=== PATIENT | male | born 1975 | race Caucasian/White ===

== ENCOUNTER 2016-08-25 06:55 | Emergency (ER) | payer BC, OTHER ==
[~2016-08-25] VITALS: Ht 177.8 cm; Wt 104.3 kg
[2016-08-25 07:05] VITALS: BP 134/83
[2016-08-25] MEDS ORDERED: CYCL10TA PO (07:13)
[2016-08-25] MEDS ORDERED: KETOROLAC 60 MG/2 ML VIAL (J1885) IM ONE (07:30)
[2016-08-25] MEDS ORDERED: NAPR500T PO (08:19)
[2016-08-25] MEDS ORDERED: VALI5TAB PO (08:19)
== END 2016-08-25 08:27 | disposition home or self-care (01) ==
LOC: M ED 07:34
DX: M62.830 Muscle spasm of back (principal); Z88.0 Allergy status to penicillin; Z88.5 Allergy status to narcotic agent; Z87.891 Personal history of nicotine dependence
CPT/HCPCS: 96372; 99281; J1885; J3360

== ENCOUNTER 2017-01-20 17:57 | Emergency (ER) | payer BC ==
[~2017-01-20] VITALS: Ht 180.3 cm; Wt 104.5 kg
[~2017-01-20 17:57] MED LIST: CYCL10TA PO; NAPR500T PO; VALI5TAB PO
[2017-01-20 18:06] VITALS: BP 132/84
[2017-01-20] MEDS ORDERED: ZYRT10CA PO (18:08)
[2017-01-20] MEDS ORDERED: NS 1,000 ML IV ONE (19:00)
[2017-01-20] MEDS: MORPHINE 4 MG/ML 1ML SYRINGE IV PRN ×2 (19:01→20:00)
[2017-01-20] MEDS ORDERED: ISOVUE-370 76% 100ML VIAL (Q9967) As Ordered ONE (19:17)
[2017-01-20 19:32] LABS: BASO % 0.9 % (0.0-1.0); EOS # 0.1 K/mm3 (0.0-0.50); EOS % 2.1 % (0.0-3.0); LARGE UNSTAINED CELL # 0.1 K/mm3 (0.0-0.4); LARGE UNSTAINED CELL % 1.4 % (0.0-4.0); LYMPH # 1.5 K/mm3 (1.5-4.5); LYMPH % 25.6 % (24.0-44.0); MEAN CORPUSCULAR HEMOGLOBIN 31.1 pg (27.0-33.0); MEAN CORPUSCULAR HGB CONC 34.2 g/dl (32.0-36.5); MONO # 0.4 K/mm3 (0.0-0.8); MONO % 6.3 % (0.0-5.0); NEUTROPHILS # 3.6 K/mm3 (1.8-7.7); NEUTROPHILS % 63.7 % (36.0-66.0); PLATELET COUNT, AUTOMATED 210 k/mm3 (150-450); RED CELL DISTRIBUTION WIDTH 12.3 % (11.5-14.5); WHITE BLOOD COUNT 5.7 K/mm3 (4.0-10.0)
[2017-01-20 19:34] LABS: INR 0.96
[2017-01-20 19:38] LABS: ALBUMIN 4.4 GM/DL (3.2-5.2); ALBUMIN/GLOBULIN RATIO 1.38 (1.00-1.93); ALKALINE PHOSPHATASE 41 U/L (45-117); ALT/SGPT 49 U/L (12-78); ANION GAP 8 MEQ/L (8-16); AST/SGOT 25 U/L (15-37); BILIRUBIN,DIRECT 0.1 MG/DL (0.0-0.2); BILIRUBIN,TOTAL 0.5 MG/DL (0.2-1.0); BLOOD UREA NITROGEN 13 MG/DL (7-18); CALCIUM LEVEL 8.9 MG/DL (8.5-10.1); CARBON DIOXIDE LEVEL 27 MEQ/L (21-32); CHLORIDE LEVEL 106 MEQ/L (98-107); CREATININE FOR GFR 1.22 MG/DL (0.70-1.30); GLOMERULAR FILTRATION RATE > 60.0 (>60); GLUCOSE, FASTING 85 MG/DL (70-105); POTASSIUM SERUM 3.6 MEQ/L (3.5-5.1); SODIUM LEVEL 141 MEQ/L (136-145); TOTAL PROTEIN 7.6 GM/DL (6.4-8.2)
--- NOTE | 2017-01-20 20:30 | REPUSA ---
CT of the head Clinical history: trauma. Technique: Multiple axial CT images were obtained through the head without administration of contrast . Findings: The ventricles and sulci are symmetric bilaterally. There is no evidence of acute hemorrhag e or infarct. There is no midline shift, mass effect, or extra-axial fluid collection. The osseous st ructures are unremarkable. The visualized paranasal sinuses and mastoid air cells are clear. Impression: Negative study.
--- NOTE | 2017-01-20 20:30 | REPUSA ---
CT of the facial bones without contrast Clinical history: Pain, trauma. Technique: Multiple axial CT images were obtained through the facial bones and paranasal sinuses util izing 3 mm axial slices without administration of contrast. Coronal and sagittal reconstructions were also obtained. Findings: The visualized paranasal sinuses are clear. The osteomeatal complexes are patent bilaterall y. The nasal septum is midline. The visualized mastoid air cells are clear. The osseous structures do not demonstrate any acute abnormalities. The superficial soft tissues are within normal limits. Impression: Unremarkable CT examination of the facial bones and paranasal sinuses.
--- NOTE | 2017-01-20 20:30 | REPUSA ---
CT of the cervical spine Clinical history: Pain. Trauma. Technique: Multiple axial CT images were obtained through the cervical spine without administration o f contrast. Coronal and sagittal 3-D reconstructed images were also obtained. Comparison: None. Findings: The cervical vertebral bodies are in satisfactory positioning and alignment. No fractures or dislocat ions are demonstrated. The odontoid process is intact. Intervertebral disc spaces are well-maintained . There is no evidence of facet subluxation. The surrounding soft tissues are within normal limits. At C4/C5, there is a small disc osteophyte complex. There is a small central disc protrusion measurin g 0.5 x 0.9 cm. This causes moderate central canal stenosis measuring 7.5 mm in AP diameter. The neur al foramen are patent bilaterally. At C5/C6, there is a disc osteophyte complex and disc bulge, with right paracentral disc protrusion. This causes mild central canal stenosis measuring 9 mm in AP diameter. There is moderate narrowing of the right neural foramen at this level. At C6/C7, there is a broad disc osteophyte complex and disc bulge, causing mild central canal stenosi s measuring 10 mm in AP diameter. The neural foramen are patent bilaterally. Impression: 1. No acute fracture or traumatic injury. 2. At C4/C5, small central disc protrusion causing moderate central canal stenosis. 3. At C5/C6, disc osteophyte complex and disc bulge with right paracentral disc protrusion causing mi ld central canal stenosis and moderate right neural foraminal narrowing. 4. At C6/C7, disc osteophyte complex and disc bulge causing mild central canal stenosis. 5. MRI may be helpful for further evaluation of the central canal stenosis.
--- NOTE | 2017-01-20 20:40 | REPUSA ---
CT of the right hip without contrast Clinical statement: Pain. Trauma. Technique: Multiple axial CT images were obtained with 5 mm cuts through the right hip without admini stration of contrast. Coronal and sagittal reconstructions were also obtained. No comparison is available. Findings: The osseous structures do not demonstrate any fractures or dislocations. There is a benign sclerotic chondroid lesion in the trochanteric region of the proximal right femur. The superficial so ft tissues are unremarkable. The joint spaces are well-maintained. Impression: Unremarkable CT examination of the right hip.
--- NOTE | 2017-01-20 20:40 | REPUSA ---
CT of the abdomen and pelvis with contrast Clinical statement: Pain. Trauma. Technique: Multiple axial CT images were obtained from the base of the lungs through the floor of the pelvis utilizing 5 mm axial slices after administration of nonionic intravenous contrast. Coronal an d sagittal reconstructions were also obtained. No comparison is available. Findings: Chest: The visualized lung bases are clear. Abdomen: The liver, spleen, pancreas, kidneys, gallbladder, and adrenal glands are unremarkable. The aorta is within normal limits. There is no evidence of abdominal lymphadenopathy or ascites. Pelvis: The bowel is unremarkable, with no obstructive or inflammatory changes. The urinary bladder i s within normal limits. The other pelvic structures appear grossly intact. There is no evidence of pe lvic lymphadenopathy or ascites. Bones: There are no suspicious osseous abnormalities seen. Impression: Unremarkable CT examination of the abdomen and pelvis.
--- NOTE | 2017-01-20 20:40 | REPUSA ---
CT of the lumbar spine without contrast Clinical history: Pain. Trauma. Technique: Multiple axial CT images were obtained through the lumbar spine without administration of contrast. Coronal and sagittal 3-D reconstructed images were also obtained. Findings: The lumbar vertebral bodies are in satisfactory positioning and alignment. No fractures or dislocatio ns are demonstrated. Intervertebral disc spaces are well-maintained. There is no evidence of facet nelson bluxation. The neural foramen appear grossly patent. The spinal canal demonstrates normal caliber and contour without evidence of spinal stenosis. The surrounding soft tissues are within normal limits. Impression: Unremarkable CT examination of the lumbar spine.
--- NOTE | 2017-01-20 20:50 | REPUSA ---
CT of the chest Clinical statement: Chest pain, trauma. Technique: Multiple axial CT images were obtained from the thoracic inlet through the upper abdomen a fter a bolus administration of nonionic intravenous contrast. Coronal and sagittal reconstructions we re also obtained. No comparison is available. Findings: The central pulmonary arteries are unremarkable. The thoracic aorta is unremarkable. Thyroi d gland is within normal limits. There is no thoracic lymphadenopathy. There are no pericardial or pl eural effusions. The lungs are clear. Limited imaging of the upper abdomen is unremarkable. There are no suspicious osseous lesions. Impression: No acute findings. No traumatic injury appreciated.
[2017-01-20] MEDS ORDERED: PERCOCET 5MG/325MG TAB PO ONE (22:30)
[2017-01-20] MEDS ORDERED: MORPHINE 4 MG/ML 1ML SYRINGE IV ONE (22:30)
--- NOTE | 2017-01-21 00:27 | REPUSA ---
CT of the thoracic spine with contrast Clinical history: Pain. Trauma. Technique: Multiple axial CT images were obtained through the thoracic spine with administration of c ontrast. Coronal and sagittal 3-D reconstructed images were also obtained. Findings: The vertebral bodies are in satisfactory positioning and alignment. No fractures or dislocations are demonstrated. Intervertebral disc spaces are well-maintained. There is no evidence of facet subluxati on. The neural foramen appear grossly patent. The spinal canal demonstrates normal caliber and contou r without evidence of spinal stenosis. The surrounding soft tissues are within normal limits. Impression: No acute abnormalities appreciated.
--- NOTE | 2017-01-21 01:53 | REPUSA ---
PROCEDURE: MRI CERVICAL SPINE. REASON FOR EXAM: Pain. TECHNIQUE: Axial and sagittal T1 and T2 weighted images were obtained. Fat suppressed images were als o obtained. COMPARISON: None. FINDINGS: Moderate diffuse spondylotic changes. Findings are most dated by diffuse disc dehydration, disc space narrowing, osteophyte formation and d egenerative endplate changes. Diffuse facet joint arthropathy and degenerative uncovertebral joint disease. There is normal signal intensity from the visualized bone marrow without evidence of replacement or a cute fracture. The visualized portions of the spinal cord are unremarkable. The visualized portions of the posterior fossa are unremarkable. There is normal cervical lordosis. The vertebral alignment is within normal limits. Evaluation of the individual levels revealed the following: C2-C3: There is mild diffuse disc bulge. Superimposed broad-based right paracentral/posterolateral di sc protrusion measuring 2.4 mm in its largest anteroposterior dimension The spinal canal is not narro wed. There is mild bilateral neural foramina narrowing. C3-C4: There is mild diffuse disc bulge. The spinal canal is not narrowed. There is mild bilateral ne ural foramina narrowing. C4-C5: There is moderate diffuse disc bulge. Superimposed right paracentral/posterolateral disc protr usion. The spinal canal is mildly narrowed. There is mild right and moderate left neural foramina shay rowing. C5-C6: There is moderate diffuse disc bulge. Superimposed broad-based right posterolateral/foraminal disc protrusion. The spinal canal is mildly narrowed. There is severe right and mild left neural fora otilia narrowing. C6-C7: There is mild diffuse disc bulge. Superimposed broad-based right posterolateral disc protrusio n. The spinal canal is not narrowed. There is mild right and moderate left neural foramina narrowing. Impression: Straightening of the cervical lordosis. Spondylosis. Multilevel degenerative disc disease. Thank you for your kind referral of this patient. We appreciate opportunity to participate in this pa tient's care.
[2017-01-21] MEDS ORDERED: NORCO, ANEXSIA 5/325MG TABLET (HYDROcodone/ACETAMINOPHEN) PO ONE (02:45)
[2017-01-21] MEDS ORDERED: NORCO 5/325MG TABLET (BULK FOR ED) PO ONE (02:45)
[2017-01-21] MEDS ORDERED: PERCOCET 5MG/325MG TAB PO ONE (03:00)
== END 2017-01-21 02:50 | disposition home or self-care (01) ==
LOC: M ED 17:57
DX: S16.1XXA Strain of muscle, fascia and tendon at neck level, initial encounter (principal); V49.40XA Driver injured in collision with unspecified motor vehicles in traffic accident, initial encounter; Y92.410 Unspecified street and highway as the place of occurrence of the external cause; Y93.89 Activity, other specified; Y99.9 Unspecified external cause status
CPT/HCPCS: 70450; 70486; 71260; 72125; 72128; 72131; 72141; 73700; 74177; 80048; 80076; 81001; 85025; 85610; 85730; 86850; 86900; 86901; 87086; 93041; 94760; 96374; 96376; 99284; Q9967

== ENCOUNTER → 2017-04-10 | Outpatient (CLI) | payer BC ==
[~2017-04-10] MED LIST changes: +ZYRT10CA PO
== END ==
LOC: M PAT 12:08
PROVIDERS: ATTEND Orthopaedic Surgery
DX: Z01.818 Encounter for other preprocedural examination (principal)

== ENCOUNTER → 2017-04-15 | Outpatient (CLI) | payer BC ==
[~2017-04-15] MED LIST changes: +METH1TAB40 PO; +NORT25CA2 PO
--- NOTE | 2017-04-15 19:53 | ECGEPIP ---
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 No prior ECG available for comparison at the time of interpretation. Electronically Signed On 04-15-2017 19:52:53 EST by Joe Alegria
== END ==
LOC: M EKG 07:58
PROVIDERS: ATTEND Anesthesiology
DX: Z01.818 Encounter for other preprocedural examination (principal)

== ENCOUNTER 2017-04-16 09:00 | Inpatient (IN) | payer BC ==
[2017-04-10 12:26] VITALS: BP 127/84
--- NOTE | 2017-04-11 12:04 | HPE ---
DATE OF ADMISSION: 04/16/2017 CHIEF COMPLAINT: Herniated discs in the cervical spine with right arm pain. HISTORY OF PRESENT ILLNESS: This is a pleasant 42-year-old male with progressively worsening cervical disc herniation and right upper extremity radiculopathy. He had failed to improve with conservative treatment. He elected for surgery for his continued symptoms. He has pain with his activities of daily living. Images of his cervical spine were notable for disc herniations at C4-5 and C5-6. He has consented for an anterior cervical discectomy and fusion at C4-5 and C5-[address] Paul Tate. Medical optimization was not requested. ALLERGIES: PENICILLIN and CODEINE. CURRENT MEDICATIONS: - Zyrtec 10 mg once a day - methocarbamol 500 mg 1-2 three times a day as needed - nortriptyline 25 mg at bedtime PAST MEDICAL HISTORY: Includes posttraumatic stress disorder (PTSD) with anxiety and depression. PAST SURGICAL HISTORY: Includes four left knee arthroscopies, an appendectomy, and bilateral ethmoid surgeries. 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 FAMILY HISTORY: Is noncontributory. REVIEW OF SYSTEMS: The patient denies chest pain, heart palpitations, cough, wheezing, difficulty breathing, or shortness of breath. He denies abdominal pain, nausea, vomiting, diarrhea, or constipation. He denies recent upper respiratory infection or urinary tract infection symptoms. He does complain of persistent pain in the neck and right upper extremity. PHYSICAL EXAMINATION: General: He is well-nourished, well-developed, in no acute distress, alert male patient. He has difficulty with cervical range of motion secondary to pain and stiffness. Vital signs: He is 69 inches tall, weighs 233 pounds, with a temperature of 96.3, blood pressure 120/78, pulse of 66, and respirations of 12. Neck was supple without adenopathy or jugular venous distension. There were no carotid bruits appreciated upon auscultation. Lungs were clear to auscultation without rales or wheeze throughout. Heart: Regular rate and rhythm. Abdomen: Bowel sounds were present. Extremities: Examination of her of the cervical spine revealed intact skin. LABORATORY DATA: His laboratories were to be drawn immediately following his appointment today, so we are still pending the results of those. I do not anticipate any problems and suspect we will be will proceed as planned on the 04/16/2017. IMPRESSION: Symptomatic cervical disc herniations with a right upper extremity radiculopathy. PLAN: Consented for anterior cervical decompression and fusion of C4-5 and C5-[address] Paul Tate.
[~2017-04-16] VITALS: Ht 177.8 cm; Wt 105.7 kg
[~2017-04-16 09:00] MED LIST changes: -METH1TAB40 PO; -NORT25CA2 PO
[2017-04-16] MEDS ORDERED: VANCOMYCIN HCL 1,000 MG, VIAL MATE ADAPTER 1 EACH in D5W 250 ML IV ONE ×2 (09:30→23:00)
[2017-04-16] MEDS ORDERED: LR 1,000 ML IV ONE (09:30)
[2017-04-16] MEDS ORDERED: GABAPENTIN 300 MG CAP PO ONE (09:30)
[2017-04-16] MEDS ORDERED: PERCOCET 5MG/325MG TAB PO ONE (09:30)
[2017-04-16] MEDS ORDERED: METH1TAB40 PO (10:17)
[2017-04-16] MEDS ORDERED: NORT25CA2 PO (10:17)
[2017-04-16] MEDS ORDERED: ROCURONIUM BROMIDE 50 MG/5 ML VIAL As Ordered ONE ×2 (10:31→12:42)
[2017-04-16] MEDS ORDERED: PROPOFOL 200 MG/20 ML VIAL As Ordered ONE ×2 (10:31→14:40)
[2017-04-16] MEDS ORDERED: fentaNYL 100 MCG/2 ML INJECTION (J3010) As Ordered ONE (10:31)
[2017-04-16] MEDS ORDERED: MIDAZOLAM INJ 2 MG/2 ML VIAL (J2250) As Ordered ONE (10:31)
[2017-04-16] MEDS ORDERED: VANCOMYCIN HCL 500 MG/10 ML VIAL (J3370) As Ordered ONE (12:08)
[2017-04-16] MEDS ORDERED: THROMBIN SOLN 20,000 UNITS KIT As Ordered ONE (12:08)
[2017-04-16] MEDS ORDERED: LIDOCAINE W/EPINEPHRINE 1% 20ML VIAL As Ordered ONE (12:08)
[2017-04-16] MEDS ORDERED: BACITRACIN PWD 50,000 UNITS VIAL As Ordered ONE (12:08)
[2017-04-16] MEDS ORDERED: dexameTHASONE 4 MG/ML 1ML VIAL (J1100) As Ordered ONE (12:09)
[2017-04-16] MEDS ORDERED: HYDROmorphone HCL 2 MG/ML 1ML VIAL (J1170) As Ordered ONE (12:32)
[2017-04-16] MEDS ORDERED: GLYCOPYRROLATE INJ 0.2 MG/ML 2 ML VIAL As Ordered ONE (14:36)
[2017-04-16] MEDS ORDERED: ONDANSETRON 4MG/2ML VIAL (J2405) As Ordered ONE (14:36)
[2017-04-16] MEDS ORDERED: D5W/LR 1,000 ML IV SCH (15:45)
[2017-04-16] MEDS ORDERED: ACETAMINOPHEN TAB 650MG DOSE (2X325MG) PO PRN (16:00)
[2017-04-16] MEDS ORDERED: HYDROmorphone HCL 1 MG/ML SYRINGE (J1170) IV PRN ×2 (16:00)
[2017-04-16] MEDS ORDERED: MORPHINE 10 MG/ML 1ML VIAL IV PRN (16:00)
[2017-04-16] MEDS ORDERED: ONDANSETRON 4MG/2ML VIAL (J2405) IV PRN (16:00)
[2017-04-16] MEDS ORDERED: LR 1,000 ML IV SCH (16:00)
[2017-04-16] MEDS ORDERED: CYCLOBENZAPRINE 10 MG TAB PO PRN (16:00)
[2017-04-16] MEDS ORDERED: fentaNYL 100 MCG/2 ML INJECTION (J3010) IV PRN (16:00)
[2017-04-16] MEDS: PERCOCET 5MG/325MG TAB PO PRN ×3 (16:09→21:02)
[2017-04-16 16:30] VITALS: BP 149/88
[2017-04-16] MEDS: ONDANSETRON 4MG/2ML VIAL (J2405) IV PRN ×2 (16:45→21:05)
[2017-04-16 17:00] VITALS: BP 141/90
[2017-04-16 20:00] VITALS: BP 126/67
[2017-04-16 21:00] VITALS: BP 145/89
[2017-04-16] MEDS: DOCUSATE SODIUM 100 MG CAP PO SCH (21:02)
--- NOTE | 2017-04-16 22:19 | RO ---
DATE OF PROCEDURE: 04/16/2017 PREOPERATIVE DIAGNOSIS: Right upper extremity cervical radiculopathy secondary to spinal stenosis at C4-5 and C5-6. POSTOPERATIVE DIAGNOSIS: Right upper extremity cervical radiculopathy secondary to spinal stenosis at C4-5 and C5-6. PROCEDURE PERFORMED: Anterior cervical discectomy at C5-6 including endplate preparation, decompression of the thecal sac by removal of posterior longitudinal ligament and nerve roots, anterior cervical discectomy, decompression and fusion at C5-6 additional level, harvest and placement of local autograft for spine surgery, use of intervertebral biomechanical device at C4-5, use of intervertebral biomechanical device at C5-6, anterior cervical instrumentation for spine surgery C4-5-6. SURGEON: Paul Tate MD DOG GROOMER: ALISSA Paula ANESTHESIA: General. ESTIMATED BLOOD LOSS: Less than 50. COMPLICATIONS: None. INDICATION: Right upper extremity radicular symptoms, numbness and tingling. MRI reflects central bulge at 4-5 producing moderate spinal stenosis and a right-sided disc herniation at 5-6 producing impingement to the right nerve roots. The patient has had some conservative management, which has not produce released and elected for operative intervention. Consent reviewed in detail with the patient including a nelda discussion of the pathology involved, procedure proposed, alternatives including doing nothing and risks including but not limited to pain, failure, infection, bleeding, blood loss, incomplete relief of symptoms, need for additional surgery, paralysis, swallowing trouble, hoarseness and other issues. The patient agrees to proceed. COMPONENTS USED: Include De[employer]uy [place] plate system, size 30 mm; 15 mm screws times four, 14 mm screws times two, the four web titanium interbody vertebral device cage system, size 7 lordotic, large times two. DBX putty. DESCRIPTION OF PROCEDURE: Identified in holding area, site and side verified, brought to the operating room. General endotracheal anesthesia was administered. He was positioned for exposure of the cervical spine for an anterior cervical decompression and fusion from the right side. Time-out was accomplished. Mr. Maciel stood on the left, I stood on the right. I utilized 3.5 loupe magnification as well as a headlight. Incision outlined with a marking pen based on palpation of landmarks, infiltrated with 1% lidocaine with epinephrine, made with a #10 blade knife, the incision was approximately three fingerbreadths. Incision was developed through subcuticular tissues to the platysma muscle, which was elevated, divided using bipolar cautery and tenotomy scissors exposing the sternocleidomastoid which was kept lateral. Dissection was continued medial to that identifying the carotid sheath and omohyoid. Omohyoid was elevated, exposed and divided using the bipolar cautery and tenotomy scissors. Carotid sheath was protected. Dissection continued medial to the carotid sheath to the anterior vertebral column. The prevertebral fascia was elevated and several leaves retracted by Mr. Maceil using S retractors exposing C4-5-6. Next, a bayonet spinal needle was placed in the interspace through the annulus at C5-6, and a cross-table lateral x-ray was taken for level localization. Next, the dissection continued exposing from C4-C6, elevating medial border longus colli. Next, distraction pins placed across C5-6. Shadow line retractor placed across C5-6. The annulotomy was accomplished using an #11 blade followed by removal of disc material using pituitaries; removal of cartilaginous endplates using curved curettes. At this stage, I then used the oval bur to contour the vertebral body endplates for arthrodesis and the burring extended through the uncinate processes, which were also debrided back to the posterior and longitudinal ligament. I scooped and retained the morselized local autograft for use with the cage. Posterior longitudinal ligament was elevated using the curved curettes and removed using #1 and 2 Kerrisons exposing the thecal sac and I did appreciate a right-sided disc herniation which was removed in the subligamentous position. Next, irrigation was accomplished, rasps and sounds were utilized to verify appropriate cage size. I selected a size 7 large lordotic cage. This cage was packed with the bone graft material, mixed with demineralized bone matrix putty as an stick roller. The cage was then implanted and tamped into place. The inferior distraction pin removed, plugs of wax and bur were utilized to contour anterior vertebral complex. Attention was turned to C4-5 level. The discectomy was accomplished in the same fashion along with measurement for and placement of the plate at the C4-5 level. At C4-5 I did encounter the expected central disc herniation, which was actually larger than I expected it to be and this was removed using #1 and #2 Kerrisons along with posterior longitudinal ligament. Next, the arthrodesis was accomplished in a similar fashion including placement of the size 7 lordotic cage. Next, distraction pins removed, holes plugged with wax. Oval bur was utilized to contour anterior vertebral bodies to receive the plates. Mr. Maciel retracted with S retractors. I then selected the 30 mm plate. I drilled and placed screws in the 30 mm plate. I utilized 15 mm self-tapping screws at C6 and C4. At C5, I utilized 14 mm screws. Screws were locked, irrigation was accomplished. Bipolar cautery was utilized for hemostasis. The wound was inspected. No active bleeding. I irrigated with saline solution and high concentration bacitracin. I also sprinkled about a 1/2 gram of vancomycin crystals in the wound for infection prophylaxis. Next, a cross-table lateral was taken to verify appropriate level and plate placement. Next, platysma was closed with interrupted stitch, deep dermis with interrupted stitch. Dermabond dressing was utilized on skin. The hard collar was applied. Patient extubated, moved to the hospital bed in good condition moving all four extremities. For further details please refer to medical record. Please note Mr. Maciel was present and participated in the entirety of the case.
--- NOTE | 2017-04-16 23:15 | REP ---
CERVICAL SPINE VIEWS, 04/16/2017: A second intraoperative cross-table lateral cervical spine radiograph is presented, time stamped 2:53 p.m. It is compared with the 1:27 p.m. initial cross-table lateral view. An orotracheal tube remains in place. The patient is status post ventral C4-5 and C5-6 intervertebral disc spaces. Fusion plate is in good alignment. There is straightening. Signed by Albin Echeverria MD 04/17/2017 08:17 A
[2017-04-17 01:00] VITALS: BP 122/62
[2017-04-17] MEDS: PERCOCET 5MG/325MG TAB PO PRN ×4 (01:57→14:10)
[2017-04-17 06:00] VITALS: BP 114/63
[2017-04-17] MEDS ORDERED: CETIRIZINE (ZyrTEC) 10 MG TAB PO SCH (09:00)
[2017-04-17] MEDS ORDERED: METAMUCIL (PSYLLIUM) PACKET PO SCH (09:00)
[2017-04-17] MEDS: DOCUSATE SODIUM 100 MG CAP PO SCH (10:22)
== END 2017-04-17 14:10 | disposition home or self-care (01) | DRG 321 ==
LOC: M OR 09:00 → M MS5PR 16:30
PROVIDERS: ADMIT Orthopaedic Surgery; ATTEND Orthopaedic Surgery
PROC: 0RB30ZZ Excision of Cervical Vertebral Disc, Open Approach (ICD-10-PCS; 2017-04-16)
PROC: 0RG2070 Fusion of 2 or more Cervical Vertebral Joints with Autologous Tissue Substitute, Anterior Approach, Anterior Column, Open Approach (ICD-10-PCS; 2017-04-16)
PROC: 0RG20A0 Fusion of 2 or more Cervical Vertebral Joints with Interbody Fusion Device, Anterior Approach, Anterior Column, Open Approach (ICD-10-PCS; principal; 2017-04-16 11:30)
DX: M48.02 Spinal stenosis, cervical region (principal); M50.20 Other cervical disc displacement, unspecified cervical region; Z79.899 Other long term (current) drug therapy; Z88.0 Allergy status to penicillin; Z88.5 Allergy status to narcotic agent; Z87.891 Personal history of nicotine dependence

== ENCOUNTER → 2019-02-11 | Outpatient (REF) | payer BC ==
[~2019-02-11] MED LIST changes: +METH1TAB40 PO; +NAPR-837 PO; -NAPR500T PO; +NORT25CA2 PO
[2019-02-11 18:10] LABS: APPEARANCE, URINE CLEAR (CLEAR); BACTERIA, URINE AUTO NEGATIVE (NEGATIVE); BILIRUBIN, URINE AUTO NEGATIVE (NEGATIVE); BLOOD, URINE BLOOD NEGATIVE (NEGATIVE); CALCIUM OXALATE CRYSTALS SMALL; COLOR, URINE YELLOW (YELLOW); GLUCOSE, URINE (UA) AUTO NEGATIVE (NEGATIVE); KETONE, URINE AUTO NEGATIVE (NEGATIVE); LEUKOCYTE ESTERASE, URINE AUTO NEGATIVE (NEGATIVE); MUCUS, URINE SMALL (NEGATIVE); NITRITE, URINE AUTO NEGATIVE (NEGATIVE); PROTEIN, URINE AUTO NEGATIVE (NEGATIVE); RBC, URINE AUTO 1 /HPF (0-3); SPECIFIC GRAVITY URINE AUTO 1.026 (1.002-1.035); SQUAMOUS EPITHELIAL CELL UR AU 0 /HPF (0-6); UROBILINOGEN, URINE AUTO 0.2 mg/dL (0.0-2.0); WBC, URINE AUTO 2 /HPF (0-3)
== END ==
LOC: M LAB REF 17:30
PROVIDERS: ATTEND Physician Assistant
DX: N39.0 Urinary tract infection, site not specified (principal)

== ENCOUNTER 2023-03-24 10:00 | Day surgery (SDC) | payer OTHER ==
[~2023-03-24] VITALS: Ht 180.3 cm; Wt 108.9 kg
[~2023-03-24 10:00] MED LIST changes: +CETI10TA4 PO; +CYCL-707 PO; -CYCL10TA PO; +METH-1164 PO; -METH1TAB40 PO; +NS 1,000 ML IV ONE; +TERB250T91 PO
[2023-03-24] MEDS ORDERED: propofoL 200 MG/20 ML VIAL As Ordered ONE ×2 (10:31→10:32)
[2023-03-24] MEDS ORDERED: LIDOCAINE 2% 100MG/5ML SDV (FOR ANES.) As Ordered ONE (10:33)
[2023-03-24] MEDS ORDERED: fentaNYL 100 MCG/2 ML INJECTION As Ordered ONE (10:56)
[2023-03-24] MEDS ORDERED: ONDANSETRON 4MG 2ML VIAL As Ordered ONE (11:46)
[2023-03-24 12:40] VITALS: BP 157/87; TEMP 97.3; O2SAT 98
== END 2023-03-24 12:43 | disposition home or self-care (01) ==
LOC: M OPP 10:00
PROVIDERS: ATTEND Internal Medicine Gastroenterology
DX: D12.3 Benign neoplasm of transverse colon (principal); Z80.0 Family history of malignant neoplasm of digestive organs; R14.0 Abdominal distension (gaseous); K30 Functional dyspepsia; K20.90 Esophagitis, unspecified without bleeding; Z88.0 Allergy status to penicillin; Z88.5 Allergy status to narcotic agent; G47.30 Sleep apnea, unspecified; Z99.89 Dependence on other enabling machines and devices; M54.50 Low back pain, unspecified; Z79.899 Other long term (current) drug therapy; F17.200 Nicotine dependence, unspecified, uncomplicated
CPT/HCPCS: 43239; 45385; 88305; J2405; J3010

== ENCOUNTER 2024-01-14 13:38 | Day surgery (SDC) | payer OTHER ==
[~2024-01-14] VITALS: Ht 180.3 cm; Wt 111.2 kg
[~2024-01-14 13:38] MED LIST changes: -NS 1,000 ML IV ONE
[2024-01-14] MEDS ORDERED: LR 1,000 ML IV SCH (14:40)
[2024-01-14] MEDS: SCOPOLAMINE 1MG TRANSDERMAL PATCH TOP ONE (17:57)
[2024-01-14] MEDS: ceFAZolin SOD 2 GM in IV 1 EA IV ONE (18:16)
[2024-01-14] MEDS: HEPARIN SOD (PORCINE) 5000UNITS/ML 1ML VIAL/SYRINGE SQ ONE (18:20)
[2024-01-14] MEDS ORDERED: fentaNYL 100 MCG/2 ML INJECTION As Ordered ONE (18:35)
[2024-01-14] MEDS ORDERED: propofoL 200 MG/20 ML VIAL As Ordered ONE (18:35)
[2024-01-14] MEDS ORDERED: ROCURONIUM BROMIDE 50MG/5ML VIAL As Ordered ONE (18:35)
[2024-01-14] MEDS ORDERED: SUGAMMADEX SODIUM 500 MG/5 ML VIAL (BRIDION) As Ordered ONE (18:35)
[2024-01-14] MEDS ORDERED: MIDAZOLAM INJ 2MG/2ML VIAL As Ordered ONE (18:35)
[2024-01-14] MEDS ORDERED: ONDANSETRON 4MG 2ML VIAL As Ordered ONE (18:35)
[2024-01-14] MEDS ORDERED: LIDOCAINE 2% 100MG/5ML SDV (FOR ANES.) As Ordered ONE (18:35)
[2024-01-14] MEDS ORDERED: dexmedeTOMIDine (4MCG/ML)200MCG/50ML BTL (PRECEDEX) As Ordered ONE (18:35)
[2024-01-14] MEDS ORDERED: ACETAMINOPHEN 1000MG 100ML IV BAG As Ordered ONE (18:36)
[2024-01-14] MEDS ORDERED: HYDROmorphone HCL 2MG/ML 1ML VIAL As Ordered ONE (18:54)
[2024-01-14] MEDS ORDERED: hydrALAZINE 20MG/ML 1ML VIAL As Ordered ONE (19:05)
[2024-01-14] MEDS ORDERED: fentaNYL 100 MCG/2 ML INJECTION IV PRN (19:50)
[2024-01-14] MEDS: oxyCODONE 5MG TAB PO PRN (20:31)
[2024-01-14] MEDS: ONDANSETRON 4MG 2ML VIAL IV PRN (20:32)
[2024-01-14] MEDS: HYDROMORPHONE HCL 0.5 MG/ 0.5 ML SYRINGE IV PRN (20:34)
[2024-01-14 21:20] VITALS: BP 129/91; TEMP 97.3; O2SAT 96
== END 2024-01-14 21:36 | disposition home or self-care (01) ==
LOC: M SDC 13:38
PROVIDERS: ATTEND Surgery
DX: K40.90 Unilateral inguinal hernia, without obstruction or gangrene, not specified as recurrent (principal); K42.9 Umbilical hernia without obstruction or gangrene; F41.9 Anxiety disorder, unspecified; F32.A Depression, unspecified; F43.10 Post-traumatic stress disorder, unspecified; G47.33 Obstructive sleep apnea (adult) (pediatric); Z79.899 Other long term (current) drug therapy; Z88.0 Allergy status to penicillin; Z88.5 Allergy status to narcotic agent
CPT/HCPCS: 49591; 49650; C1781; J0131; J0360; J0665; J0690; J1100; J1170; J2250; J2405; J3010; S2900

== ENCOUNTER → 2024-04-06 | Outpatient (CLI) | payer BC ==
[2024-04-06 08:23] LABS: BASO # 0.1 10^3/uL (0.0-0.2); BASO % 1.5 % (0.0-1.0); EOS # 0.1 10^3/uL (0.0-0.5); HEMATOCRIT 45.5 % (42.0-52.0); HEMOGLOBIN 15.2 g/dl (13.5-17.5); LYMPH # 1.4 10^3/uL (1.5-5.0); LYMPH % 34.7 % (24.0-44.0); MEAN CORPUSCULAR HEMOGLOBIN 31.2 pg (27.0-33.0); MEAN CORPUSCULAR HGB CONC 33.4 g/dl (32.0-36.5); MEAN CORPUSCULAR VOLUME 93.4 fl (80.0-96.0); MONO # 0.4 10^3/uL (0.0-0.8); MONO % 10.2 % (2.0-8.0); NEUTROPHILS % 50.1 % (36.0-66.0); PLATELET COUNT, AUTOMATED 202 10^3/uL (150-450); RED BLOOD COUNT 4.87 10^6/uL (4.30-6.10)
[2024-04-06 09:08] LABS: HEMOGLOBIN A1c 5.4 % (4.0-6.0)
[2024-04-06 12:10] LABS: ALBUMIN 3.8 G/DL (3.2-5.2); ALKALINE PHOSPHATASE 47 U/L (40-129); ALT/SGPT 46 U/L (7.0-40); AST/SGOT 31 U/L (<34); BILIRUBIN,TOTAL 0.5 MG/DL (0.3-1.2); BLOOD UREA NITROGEN 16 MG/DL (9-23); CALCIUM LEVEL 9.6 MG/DL (8.5-10.1); CARBON DIOXIDE LEVEL 28 MMOL/L (20-31); CHLORIDE LEVEL 108 MMOL/L (98-107); CHOLESTEROL LEVEL 182 MG/DL (<200); CHOLESTEROL RISK RATIO 4.33 (<5); GLOMERULAR FILTRATION RATE > 60.0 (>56); GLUCOSE, FASTING 110 MG/DL (60-100); LDL CHOLESTEROL 120.2 MG/DL (<100); POTASSIUM SERUM 4.1 MMOL/L (3.5-5.1); SODIUM LEVEL 139 MMOL/L (136-145); TOTAL PROTEIN 7.1 G/DL (5.7-8.2); TRIGLYCERIDES LEVEL 99 MG/DL (<150)
[2024-04-06 12:12] LABS: FREE T4 0.84 NG/DL (0.89-1.76); THYROID STIMULATING HORMONE 1.244 uIU/ML (0.55-4.78)
== END ==
LOC: M LAB 07:47
PROVIDERS: ATTEND Registered Nurse
DX: E78.2 Mixed hyperlipidemia (principal); R03.0 Elevated blood-pressure reading, without diagnosis of hypertension